=== PATIENT | male | born 1960 | race Hispanic/Latino ===

== ENCOUNTER 2017-07-26 11:31 | Inpatient (IN) | payer BC, OTHER ==
[~2017-07-26] VITALS: Ht 172.7 cm; Wt 126.6 kg
[2017-07-26 11:48] LABS: BASOPHILS % (AUTO) 0.7 % (0.0-5.0); EOSINOPHILS % (AUTO) 1.7 % (0.0-8.0); HEMATOCRIT 47.4 % (42-54); LYMPHOCYTES % (AUTO) 21.2 % (21.0-51.0); MEAN CORPUSCULAR HEMOGLOBIN 33.3 pg (27.0-33.0); MEAN CORPUSCULAR HGB CONC 34.6 g/dL (32.0-36.0); MEAN CORPUSCULAR VOLUME 96.4 fL (79-99); MONOCYTES % (AUTO) 8.9 % (3.0-13.0); NEUTROPHILS % (AUTO) 67.5 % (40.0-77.0); NUCLEATED RED BLOOD CELLS 0.1 % (0.0-0.19); PLATELET COUNT (AUTO) 200 K/uL (130-400); RED BLOOD CELL COUNT(AUTO) 4.92 MIL/uL (4.50-6.20); RED CELL DISTRIBUTION WIDTH 13.2 % (11.0-15.5); WHITE BLOOD COUNT (AUTO) 8.1 K/uL (4.8-10.8)
[2017-07-26 11:53] LABS: CREATININE 0.9 mg/dL (0.5-1.5); POTASSIUM 3.6 mmol/L (3.5-5.1)
[2017-07-26 11:59] LABS: ALBUMIN 3.7 g/dL (3.5-5.0); BILIRUBIN,TOTAL 0.7 mg/dL (0.2-1.0); TOTAL PROTEIN, SERUM 7.7 g/dL (6.0-8.3)
[2017-07-26] MEDS ORDERED: ASPIRIN 325 MG TABLET ONE (12:56)
[2017-07-26] MEDS ORDERED: NITROGLYCERIN 1GM/1 INCH PACKET TD ONE (12:56)
[2017-07-26 18:25] LABS: CREATINE KINASE, TOTAL 217 U/L (21-232); MYOGLOBIN 95 ng/mL (10-92); TROPONIN I < 0.04 ng/mL (0.00-0.06)
[2017-07-26 18:58] LABS: CREATINE KINASE MB 2.5 ng/mL (0.5-3.6)
[2017-07-26 19:30] VITALS: BP 127/80
[2017-07-26] MEDS ORDERED: SODIUM CHLORIDE 0.9% 10 ML VIAL IVP PRN (19:30)
[2017-07-26] MEDS ORDERED: REGADENOSON 0.4 MG/5 ML PF SYG IVP SCH (19:30)
[2017-07-26] MEDS: NITROGLYCERIN 1GM/1 INCH PACKET TD SCH (20:30)
[2017-07-26] MEDS: METOPROLOL TARTRATE 25 MG TAB PO SCH (20:30)
[2017-07-27] VITALS (8 sets, daily range): BP systolic 102–136; BP diastolic 51–79
[2017-07-27 00:58] LABS: CREATINE KINASE MB 1.6 ng/mL (0.5-3.6); CREATINE KINASE, TOTAL 190 U/L (21-232); MYOGLOBIN 59 ng/mL (10-92); TROPONIN I < 0.04 ng/mL (0.00-0.06)
[2017-07-27] MEDS: NITROGLYCERIN 1GM/1 INCH PACKET TD SCH ×4 (02:00→20:19)
[2017-07-27] MEDS: ASPIRIN 325 MG TABLET PO SCH (15:16)
[2017-07-27] MEDS: METOPROLOL TARTRATE 25 MG TAB PO SCH ×2 (15:30→20:19)
[2017-07-28] MEDS: NITROGLYCERIN 1GM/1 INCH PACKET TD SCH ×4 (02:00→20:22)
[2017-07-28 03:40] VITALS: BP 133/72
[2017-07-28 08:00] VITALS: BP 116/71
[2017-07-28] MEDS: METOPROLOL TARTRATE 25 MG TAB PO SCH ×2 (09:15→20:15)
[2017-07-28] MEDS: ASPIRIN 325 MG TABLET PO SCH (09:15)
[2017-07-28 10:52] LABS: APPEARANCE,URINE Clear (CLEAR); BILIRUBIN,URINE Negative (NEGATIVE); COLOR,URINE Dark Yellow (YELLOW); GLUCOSE, URINE (UA) TRACE mg/dL (NEGATIVE); KETONES,URINE Negative (NEGATIVE); LEUKOCYTE ESTERASE ,URINE Negative (NEGATIVE); NITRATE,URINE Negative (NEGATIVE); OCCULT BLOOD,URINE Negative (NEGATIVE); PH,URINE 5.5 (5.0-8.0); PROTEIN,URINE Negative (NEGATIVE)
[2017-07-28 11:00] VITALS: BP 131/69
[2017-07-28 11:00] LABS: BACTERIA,URINE Rare /HPF (None Seen); RBC,URINE 0-1 /HPF (0-1); SQUAMOUS EPITHELIAL CELL,UR Rare /LPF (0-2); WBC,URINE 0-1 /HPF (0-1)
[2017-07-28 16:00] VITALS: BP 124/62
[2017-07-28 19:40] VITALS: BP 126/66
[2017-07-28] MEDS: FAMOTIDINE 20MG TAB 20 MG TAB PO SCH (20:16)
[2017-07-28 23:25] VITALS: BP 124/68
[2017-07-29] VITALS (16 sets, daily range): BP systolic 109–178; BP diastolic 58–93
[2017-07-29] MEDS: NITROGLYCERIN 1GM/1 INCH PACKET TD SCH ×4 (02:00→20:00)
[2017-07-29 03:16] LABS: HEMATOCRIT 45.3 % (42-54); MEAN CORPUSCULAR HEMOGLOBIN 33.2 pg (27.0-33.0); MEAN CORPUSCULAR HGB CONC 34.5 g/dL (32.0-36.0); MEAN CORPUSCULAR VOLUME 96.2 fL (79-99); PLATELET COUNT (AUTO) 169 K/uL (130-400); RED BLOOD CELL COUNT(AUTO) 4.71 MIL/uL (4.50-6.20); RED CELL DISTRIBUTION WIDTH 13.5 % (11.0-15.5); WHITE BLOOD COUNT (AUTO) 7.1 K/uL (4.8-10.8)
[2017-07-29 03:25] LABS: INR 1.06 (0.85-1.15); PARTIAL THROMBOPLASTIN TIME 28.8 SEC (26.3-35.5); PROTHROMBIN TIME 11.1 SEC (9.6-11.6)
[2017-07-29 03:38] LABS: ALANINE AMINOTRANSFERASE 25 U/L (12-78); ALBUMIN 3.2 g/dL (3.5-5.0); ASPARTATE AMINOTRANSFERASE 24 U/L (10-37); BILIRUBIN,TOTAL 0.5 mg/dL (0.2-1.0); CARBON DIOXIDE 30 mmol/L (21-32); CHLORIDE 105 mmol/L (101-111); CREATINE KINASE MB 1.3 ng/mL (0.5-3.6); CREATINE KINASE, TOTAL 162 U/L (21-232); CREATININE 0.8 mg/dL (0.5-1.5); GLOMERULAR FILTR. RATE CALC 105 mL/min (>60); GLUCOSE,RANDOM 111 mg/dL (70-105); MYOGLOBIN 49 ng/mL (10-92); POTASSIUM 3.8 mmol/L (3.5-5.1); SODIUM SERUM 141 mmol/L (136-145); TOTAL PROTEIN, SERUM 6.9 g/dL (6.0-8.3); TROPONIN I < 0.04 ng/mL (0.00-0.06); UREA NITROGEN, BLOOD 12 mg/dL (7-18)
[2017-07-29] MEDS ORDERED: ISOVUE-370 50ML VIAL IV ONE (07:17)
[2017-07-29] MEDS ORDERED: IOPAMIDOL-370 100 ML VIAL IV ONE (07:17)
[2017-07-29] MEDS ORDERED: HEPARIN SODIUM 1000UNIT/ML 10ML VIAL ONE (07:17)
[2017-07-29] MEDS ORDERED: LIDOCAINE HCL 2% 20ML ONE ×2 (07:17→07:59)
[2017-07-29] MEDS ORDERED: MIDAZOLAM HCL 1 MG/ML 2ML VIAL ONE (07:53)
[2017-07-29] MEDS: ASPIRIN 325 MG TABLET PO SCH (11:45)
[2017-07-29] MEDS: METOPROLOL TARTRATE 25 MG TAB PO SCH ×2 (11:45→20:24)
[2017-07-29] MEDS: FAMOTIDINE 20MG TAB 20 MG TAB PO SCH ×2 (11:45→20:24)
[2017-07-30] MEDS: NITROGLYCERIN 1GM/1 INCH PACKET TD SCH ×4 (01:01→20:54)
[2017-07-30 03:23] LABS: APPEARANCE,URINE Clear (CLEAR); BILIRUBIN,URINE Negative (NEGATIVE); COLOR,URINE Yellow (YELLOW); GLUCOSE, URINE (UA) TRACE mg/dL (NEGATIVE); KETONES,URINE Negative (NEGATIVE); LEUKOCYTE ESTERASE ,URINE Negative (NEGATIVE); NITRATE,URINE Negative (NEGATIVE); OCCULT BLOOD,URINE Negative (NEGATIVE); PROTEIN,URINE Negative (NEGATIVE)
[2017-07-30 03:36] LABS: BACTERIA,URINE Rare /HPF (None Seen); RBC,URINE None Seen /HPF (0-1); WBC,URINE 0-1 /HPF (0-1)
[2017-07-30 04:00] VITALS: BP 112/69
[2017-07-30 04:19] LABS: POTASSIUM 3.9 mmol/L (3.5-5.1)
[2017-07-30 04:25] LABS: HEMOGLOBIN A1C 6.4 % (4.0-6.0)
[2017-07-30 08:00] VITALS: BP 107/71
[2017-07-30] MEDS: METOPROLOL TARTRATE 25 MG TAB PO SCH ×2 (08:23→20:54)
[2017-07-30] MEDS: FAMOTIDINE 20MG TAB 20 MG TAB PO SCH ×2 (08:23→20:55)
[2017-07-30] MEDS: ASPIRIN 325 MG TABLET PO SCH (08:23)
[2017-07-30 11:56] VITALS: BP 108/70
[2017-07-30 15:58] VITALS: BP 119/67
[2017-07-30 19:37] VITALS: BP 124/67
[2017-07-30 23:40] VITALS: BP 126/77
[2017-07-31] MEDS: NITROGLYCERIN 1GM/1 INCH PACKET TD SCH ×4 (02:10→22:05)
[2017-07-31 03:57] VITALS: BP 117/62
[2017-07-31 07:00] VITALS: BP 123/75
[2017-07-31] MEDS: ASPIRIN 325 MG TABLET PO SCH (08:30)
[2017-07-31] MEDS: METOPROLOL TARTRATE 25 MG TAB PO SCH ×2 (08:31→22:05)
[2017-07-31] MEDS: FAMOTIDINE 20MG TAB 20 MG TAB PO SCH ×2 (08:31→22:05)
[2017-07-31 11:28] VITALS: BP 108/60
[2017-07-31 16:00] VITALS: BP 112/62
[2017-07-31 18:00] LABS: BASOPHILS % (AUTO) 0.8 % (0.0-5.0); EOSINOPHILS % (AUTO) 2.4 % (0.0-8.0); HEMATOCRIT 44.4 % (42-54); LYMPHOCYTES % (AUTO) 22.2 % (21.0-51.0); MEAN CORPUSCULAR HEMOGLOBIN 33.5 pg (27.0-33.0); MEAN CORPUSCULAR HGB CONC 34.8 g/dL (32.0-36.0); MEAN CORPUSCULAR VOLUME 96.4 fL (79-99); MONOCYTES % (AUTO) 11.1 % (3.0-13.0); NEUTROPHILS % (AUTO) 63.5 % (40.0-77.0); PLATELET COUNT (AUTO) 196 K/uL (130-400); RED BLOOD CELL COUNT(AUTO) 4.61 MIL/uL (4.50-6.20); RED CELL DISTRIBUTION WIDTH 13.3 % (11.0-15.5); WHITE BLOOD COUNT (AUTO) 7.5 K/uL (4.8-10.8)
[2017-07-31 18:12] LABS: INR 1.02 (0.85-1.15); PARTIAL THROMBOPLASTIN TIME 26.6 SEC (26.3-35.5); PROTHROMBIN TIME 10.7 SEC (9.6-11.6)
[2017-07-31 19:00] VITALS: BP 134/67
[2017-07-31 23:31] VITALS: BP 116/69
[2017-08-01] VITALS (13 sets, daily range): BP systolic 89–130; BP diastolic 44–73
[2017-08-01] MEDS: NITROGLYCERIN 1GM/1 INCH PACKET TD SCH (02:19)
[2017-08-01 04:21] LABS: HEMATOCRIT 43.1 % (42-54); MEAN CORPUSCULAR HEMOGLOBIN 33.2 pg (27.0-33.0); MEAN CORPUSCULAR HGB CONC 34.4 g/dL (32.0-36.0); MEAN CORPUSCULAR VOLUME 96.5 fL (79-99); NUCLEATED RED BLOOD CELLS 0.1 % (0.0-0.19); PLATELET COUNT (AUTO) 189 K/uL (130-400); RED BLOOD CELL COUNT(AUTO) 4.47 MIL/uL (4.50-6.20); RED CELL DISTRIBUTION WIDTH 13.4 % (11.0-15.5); WHITE BLOOD COUNT (AUTO) 7.8 K/uL (4.8-10.8)
[2017-08-01 04:30] LABS: INR 1.02 (0.85-1.15); PARTIAL THROMBOPLASTIN TIME 27.1 SEC (26.3-35.5); PROTHROMBIN TIME 10.7 SEC (9.6-11.6)
[2017-08-01 04:40] LABS: BILIRUBIN,TOTAL 0.4 mg/dL (0.2-1.0); CREATININE 0.9 mg/dL (0.5-1.5); POTASSIUM 3.9 mmol/L (3.5-5.1); TOTAL PROTEIN, SERUM 6.9 g/dL (6.0-8.3)
[2017-08-01] MEDS ORDERED: CEFUROXIME SODIUM 1.5 GM VIAL ONE ×2 (05:31→11:52)
[2017-08-01] MEDS: METOPROLOL TARTRATE 25 MG TAB PO SCH (06:27)
[2017-08-01] MEDS ORDERED: BACITRACIN 50,000 UNIT VIAL ONE (06:46)
[2017-08-01] MEDS ORDERED: HEPARIN SODIUM 1000UNIT/ML 10ML VIAL ONE ×2 (06:46→07:42)
[2017-08-01] MEDS ORDERED: OCTYL 2-CYANOACRYLATE 1 EACH TP ONE (06:46)
[2017-08-01] MEDS ORDERED: PAPAVERINE HCL 30 MG/ML 2ML VIAL ONE (06:46)
[2017-08-01] MEDS ORDERED: NITROGLYCERIN 50 MG/D5% WATER 1 BOT ONE (06:51)
[2017-08-01] MEDS ORDERED: EPINEPHRINE 1 MG/ML 30ML VIAL IJ ONE (06:51)
[2017-08-01] MEDS ORDERED: SODIUM CHLORIDE 0.9% 1000ML 1,000 ML IV ONE ×2 (06:56→11:22)
[2017-08-01] MEDS: CEFUROXIME SODIUM 1.5 GM VIAL IVP SCH ×3 (07:00→18:14)
[2017-08-01] MEDS ORDERED: CEFUROXIME 1.5GM+NS 100ML 100 ML IV SCH ×2 (07:00→19:30)
[2017-08-01] MEDS ORDERED: MILRINONE-D5W 20 MG/100 ML 100 ML IV ONE (07:42)
[2017-08-01] MEDS ORDERED: NOREPINEPHRINE BITARTRATE 1 MG/1 ML ML IV ONE ×2 (07:42→08:07)
[2017-08-01] MEDS ORDERED: PROTAMINE SULFATE 10 MG/ML 25ML VIAL IV ONE (07:42)
[2017-08-01] MEDS ORDERED: MIDAZOLAM HCL 1 MG/ML 5ML VIAL ONE (07:42)
[2017-08-01] MEDS ORDERED: PROPOFOL 10 MG/ML 20ML VIAL IV ONE (07:42)
[2017-08-01] MEDS ORDERED: LIDOCAINE PF 2% 5ML ABBOJECT ONE (07:42)
[2017-08-01] MEDS ORDERED: AMIODARONE HCL 900MG/18ML IV ONE (07:42)
[2017-08-01] MEDS ORDERED: AMINOCAPROIC ACID 250 MG/ML 20 ML VIAL IV ONE (07:42)
[2017-08-01] MEDS ORDERED: GLYCOPYRROLATE 0.2 MG/ML 5 ML VIAL ONE (07:42)
[2017-08-01] MEDS ORDERED: ESMOLOL HCL 10 MG/ML 10 ML VIAL ONE (07:42)
[2017-08-01] MEDS ORDERED: NEOSTIGMINE 5MG/5ML SYR IV ONE (07:42)
[2017-08-01] MEDS ORDERED: ROCURONIUM BROMIDE 10MG/1ML 5ML VL ONE (07:42)
[2017-08-01] MEDS ORDERED: EPINEPHRINE 1 MG/ML AMPULE ONE (07:42)
[2017-08-01] MEDS ORDERED: KETAMINE 50MG/ML SYRINGE 50 MG/ML DISP.SYRIN IV ONE (07:44)
[2017-08-01] MEDS ORDERED: FENTANYL CITRATE PF 50 MCG/1 ML 5ML AMP IV ONE ×2 (07:45)
[2017-08-01] MEDS ORDERED: THROMBIN-JMI 5000 UNIT/VIAL TP ONE (07:59)
[2017-08-01] MEDS ORDERED: DELNIDO FORMULA 2 BAG IV ONE (07:59)
[2017-08-01 08:28] LABS: ABG BASE EXCESS -0.6 mmol/L (-2.0-3.0); ABG HCO3 23.2 mmol/L (21.0-28.0); ABG OXYGEN SATURATION 99.4 % (95.0-99.0); ABG PCO2 36 mmHg (35-48)
[2017-08-01] MEDS ORDERED: METHYLPREDNISOLONE SOD SUCC 1,000 MG/8 ML ML IV ONE (09:43)
[2017-08-01 10:44] LABS: ABG BASE EXCESS -6.6 mmol/L (-2.0-3.0); ABG HCO3 19.8 mmol/L (21.0-28.0); ABG OXYGEN SATURATION 98.7 % (95.0-99.0); ABG PCO2 43 mmHg (35-48)
[2017-08-01] MEDS ORDERED: SODIUM BICARB 50MEQ 50ML VIAL ONE ×9 (11:18→21:12)
[2017-08-01 11:22] LABS: ABG BASE EXCESS -4.1 mmol/L (-2.0-3.0); ABG HCO3 21.1 mmol/L (21.0-28.0); ABG OXYGEN SATURATION 99.1 % (95.0-99.0); ABG PCO2 39 mmHg (35-48)
[2017-08-01] MEDS ORDERED: SODIUM CHLORIDE 0.9% 500ML 500 ML IV SCH (11:29)
[2017-08-01] MEDS ORDERED: EPINEPHRINE 2 MG in SODIUM CHLORIDE 0.9% 250 ML IV PRN (11:30)
[2017-08-01] MEDS ORDERED: AMINOCAPROIC ACID 15,000 MG in SODIUM CHLORIDE 0.9% 250 ML IV SCH (11:30)
[2017-08-01] MEDS ORDERED: ONDANSETRON HCL MDV 20ML 2 MG/ML VIAL IV PRN (11:30)
[2017-08-01] MEDS ORDERED: HYDROCODONE/ACETAMINOPHEN 5/325 MG TAB PO PRN (11:30)
[2017-08-01] MEDS ORDERED: MORPHINE SULFATE 2 MG/ML 1ML SYG IV PRN (11:30)
[2017-08-01] MEDS ORDERED: GLUCAGON 1MG KIT 1 MG ML IM PRN (11:30)
[2017-08-01] MEDS ORDERED: SODIUM CHLORIDE 0.9% 1000ML 1,000 ML IV SCH (11:30)
[2017-08-01] MEDS ORDERED: NOREPINEPHRINE 4MG/NS 250ML 250 ML IV PRN (11:30)
[2017-08-01] MEDS ORDERED: POTASSIUM PHOS 15 mMOL+NS250ML 250 ML IV PRN (11:30)
[2017-08-01] MEDS ORDERED: PROPOFOL 1000 MG/100 ML 100 ML IV PRN (11:30)
[2017-08-01] MEDS ORDERED: ALBUMIN (HUMAN) 5% 250 ML IV PRN (11:30)
[2017-08-01] MEDS ORDERED: INSULIN REGULAR, HUMAN 3ML 100 UNIT in SODIUM CHLORIDE 0.9% 99 ML IV SCH ×2 (11:30)
[2017-08-01] MEDS ORDERED: SODIUM CHLORIDE 0.9% 10 ML VIAL IVP PRN (11:30)
[2017-08-01] MEDS ORDERED: ACETAMINOPHEN 325 MG TAB PO PRN (11:30)
[2017-08-01] MEDS ORDERED: DEXTROSE 50%-WATER 50 ML DISP.SYRIN IV PRN (11:30)
[2017-08-01] MEDS ORDERED: NITROGLYCERIN 50 MG/D5% WATER 250 BOT IV SCH (11:30)
[2017-08-01] MEDS ORDERED: SODIUM CHLORIDE 0.9% 250 ML IV PRN (11:30)
[2017-08-01] MEDS ORDERED: MAGNESIUM 2GM PREMIX 50ML 50 ML IV PRN (11:30)
[2017-08-01] MEDS ORDERED: ACETAMINOPHEN 650 MG SUPPOSITORY RC PRN (11:30)
[2017-08-01] MEDS ORDERED: NICARDIPINE HCL 100 MG in SODIUM CHLORIDE 0.9% 100 ML IV PRN (11:30)
[2017-08-01] MEDS ORDERED: SODIUM BICARB 8.4% 50ML SYRINGE IV PRN (11:30)
[2017-08-01] MEDS ORDERED: CALCIUM GLUCONATE 1 GM in SODIUM CHLORIDE 0.9% 50 ML IV PRN (11:30)
[2017-08-01] MEDS ORDERED: FENTANYL CITRATE PF 50 MCG/1 ML 2ML VIAL ONE ×3 (11:40)
[2017-08-01 11:55] LABS: ABG BASE EXCESS -3.2 mmol/L (-2.0-3.0); ABG HCO3 22.2 mmol/L (21.0-28.0); ABG OXYGEN SATURATION 98.6 % (95.0-99.0); ABG PCO2 42 mmHg (35-48)
[2017-08-01 12:51] LABS: ABG BASE EXCESS -6.5 mmol/L (-2.0-3.0); ABG HCO3 20.8 mmol/L (21.0-28.0); ABG OXYGEN SATURATION 96.3 % (95.0-99.0); ABG PCO2 48 mmHg (35-48)
[2017-08-01 12:56] LABS: MEAN CORPUSCULAR HEMOGLOBIN 33.5 pg (27.0-33.0); MEAN CORPUSCULAR HGB CONC 34.4 g/dL (32.0-36.0); MEAN CORPUSCULAR VOLUME 97.3 fL (79-99); NUCLEATED RED BLOOD CELLS 0.1 % (0.0-0.19); PLATELET COUNT (AUTO) 95 K/uL (130-400); RED BLOOD CELL COUNT(AUTO) 4.21 MIL/uL (4.50-6.20); RED CELL DISTRIBUTION WIDTH 13.2 % (11.0-15.5); WHITE BLOOD COUNT (AUTO) 27.2 K/uL (4.8-10.8)
[2017-08-01 13:11] LABS: CREATININE 1.3 mg/dL (0.5-1.5); MAGNESIUM 2.2 mg/dL (1.80-2.40); PHOSPHORUS 4.6 mg/dL (2.5-4.9); POTASSIUM 3.6 mmol/L (3.5-5.1)
[2017-08-01] MEDS: MORPHINE SULFATE 4 MG/1ML SYG IV PRN (13:35)
[2017-08-01] MEDS: POTASSIUM CHLORIDE 20MEQ/100ML 100 ML IV PRN ×6 (13:40→23:36)
[2017-08-01] MEDS ORDERED: CALCIUM CHLORIDE 100 MG/ML 10 ML SYG IVP SCH (15:45)
[2017-08-01 15:47] LABS: ABG BASE EXCESS -6.7 mmol/L (-2.0-3.0); ABG HCO3 19.7 mmol/L (21.0-28.0); ABG OXYGEN SATURATION 98.3 % (95.0-99.0); ABG PCO2 43 mmHg (35-48)
[2017-08-01 17:25] LABS: ABG BASE EXCESS 0.3 mmol/L (-2.0-3.0); ABG HCO3 24.3 mmol/L (21.0-28.0); ABG OXYGEN SATURATION 98.4 % (95.0-99.0); ABG PCO2 38 mmHg (35-48)
[2017-08-01] MEDS ORDERED: EPINEPHRINE 8 MG in SODIUM CHLORIDE 0.9% 250 ML IV SCH (17:30)
[2017-08-01] MEDS ORDERED: ALBUMIN (HUMAN) 5% 250 ML IV ONE (17:32)
[2017-08-01] MEDS ORDERED: ALBUMIN (HUMAN) 5% 250 ML IV SCH (17:45)
[2017-08-01 18:28] LABS: ABG BASE EXCESS -3.1 mmol/L (-2.0-3.0); ABG HCO3 21.4 mmol/L (21.0-28.0); ABG OXYGEN SATURATION 98.6 % (95.0-99.0); ABG PCO2 37 mmHg (35-48)
[2017-08-01] MEDS ORDERED: ALBUMIN (HUMAN) 25% 100 ML IV ONE (18:41)
[2017-08-01] MEDS: ALBUMIN (HUMAN) 25% 100 ML IV SCH (18:45)
[2017-08-01 20:02] LABS: ABG BASE EXCESS -3.5 mmol/L (-2.0-3.0); ABG PCO2 36 mmHg (35-48)
[2017-08-01] MEDS ORDERED: CALCIUM GLUCONATE 1 GM/10 ML VIAL IV ONE (20:05)
[2017-08-01 21:08] LABS: ABG BASE EXCESS -0.8 mmol/L (-2.0-3.0); ABG HCO3 24.1 mmol/L (21.0-28.0); ABG OXYGEN SATURATION 96.4 % (95.0-99.0); ABG PCO2 41 mmHg (35-48)
[2017-08-01 23:09] LABS: ABG BASE EXCESS 2.1 mmol/L (-2.0-3.0); ABG HCO3 27.7 mmol/L (21.0-28.0); ABG OXYGEN SATURATION 94.6 % (95.0-99.0); ABG PCO2 47 mmHg (35-48)
[2017-08-02] VITALS (26 sets, daily range): BP systolic 84–139; BP diastolic 45–87
[2017-08-02] MEDS: ALBUMIN (HUMAN) 25% 100 ML IV SCH ×5 (00:45→21:43)
[2017-08-02 01:04] LABS: ABG BASE EXCESS 4.5 mmol/L (-2.0-3.0); ABG HCO3 29.8 mmol/L (21.0-28.0); ABG OXYGEN SATURATION 95.9 % (95.0-99.0); ABG PCO2 48 mmHg (35-48)
[2017-08-02] MEDS: POTASSIUM CHLORIDE 20MEQ/100ML 100 ML IV PRN ×2 (01:32→05:27)
[2017-08-02 03:57] LABS: HEMATOCRIT 31.6 % (42-54); MEAN CORPUSCULAR HEMOGLOBIN 31.4 pg (27.0-33.0); MEAN CORPUSCULAR HGB CONC 34.9 g/dL (32.0-36.0); MEAN CORPUSCULAR VOLUME 90.1 fL (79-99); PLATELET COUNT (AUTO) 222 K/uL (130-400); RED BLOOD CELL COUNT(AUTO) 3.51 MIL/uL (4.50-6.20); RED CELL DISTRIBUTION WIDTH 14.4 % (11.0-15.5); WHITE BLOOD COUNT (AUTO) 17.9 K/uL (4.8-10.8)
[2017-08-02 04:10] LABS: CREATININE 1.1 mg/dL (0.5-1.5); MAGNESIUM 2.4 mg/dL (1.80-2.40); PHOSPHORUS 2.6 mg/dL (2.5-4.9); POTASSIUM 3.7 mmol/L (3.5-5.1)
[2017-08-02 05:11] LABS: ABG BASE EXCESS 5.6 mmol/L (-2.0-3.0); ABG HCO3 30.6 mmol/L (21.0-28.0); ABG OXYGEN SATURATION 93.9 % (95.0-99.0); ABG PCO2 45 mmHg (35-48)
[2017-08-02] MEDS ORDERED: CALCIUM GLUCONATE 1 GM/10 ML VIAL IV ONE (05:26)
[2017-08-02] MEDS: CEFUROXIME SODIUM 1.5 GM VIAL IVP SCH ×2 (06:25→19:18)
[2017-08-02] MEDS: HYDROCODONE/ACETAMINOPHEN 5/325 MG TAB PO PRN ×4 (08:31→19:43)
[2017-08-02] MEDS: PANTOPRAZOLE SODIUM 40 MG TABLET.DR PO SCH (08:32)
[2017-08-02] MEDS: ATORVASTATIN CALCIUM 40 MG TABLET PO SCH (08:32)
[2017-08-02] MEDS: METOPROLOL TARTRATE 25 MG TAB PO SCH ×2 (08:32→19:43)
[2017-08-02] MEDS: ASPIRIN 81MG TAB.CHEW PO SCH (08:32)
[2017-08-02] MEDS: MORPHINE SULFATE 4 MG/1ML SYG IV PRN (21:52)
[2017-08-03] VITALS (20 sets, daily range): BP systolic 95–130; BP diastolic 52–84
[2017-08-03 04:27] LABS: ALBUMIN 2.9 g/dL (3.5-5.0); BILIRUBIN,TOTAL 0.7 mg/dL (0.2-1.0); CREATININE 0.9 mg/dL (0.5-1.5); MAGNESIUM 1.9 mg/dL (1.80-2.40); PHOSPHORUS 3.5 mg/dL (2.5-4.9); POTASSIUM 4.2 mmol/L (3.5-5.1); TOTAL PROTEIN, SERUM 5.4 g/dL (6.0-8.3)
[2017-08-03 04:34] LABS: HEMATOCRIT 28.2 % (42-54); MEAN CORPUSCULAR HEMOGLOBIN 33.5 pg (27.0-33.0); MEAN CORPUSCULAR HGB CONC 34.3 g/dL (32.0-36.0); MEAN CORPUSCULAR VOLUME 97.8 fL (79-99); RED BLOOD CELL COUNT(AUTO) 2.88 MIL/uL (4.50-6.20); RED CELL DISTRIBUTION WIDTH 13.9 % (11.0-15.5); WHITE BLOOD COUNT (AUTO) 20.3 K/uL (4.8-10.8)
[2017-08-03 04:48] LABS: PLATELET COUNT (AUTO) 96 K/uL (130-400)
[2017-08-03 04:55] LABS: BAND NEUTROPHILS % (MANUAL) 14 % (0-2); LYMPHOCYTES % (MANUAL) 5 % (22-44); MAN.DIFF COMMENT-IMPRESSION MANUAL DIFFERENTIAL; MONOCYTES % (MANUAL) 7 % (2-9); SEGMENTED NEUTROPHILS % 74 % (40-70)
[2017-08-03] MEDS: PANTOPRAZOLE SODIUM 40 MG TABLET.DR PO SCH (09:06)
[2017-08-03] MEDS: ASPIRIN 81MG TAB.CHEW PO SCH (09:06)
[2017-08-03] MEDS: ATORVASTATIN CALCIUM 40 MG TABLET PO SCH (09:06)
[2017-08-03] MEDS: METOPROLOL TARTRATE 25 MG TAB PO SCH ×2 (09:07→22:36)
[2017-08-03] MEDS: ALBUMIN (HUMAN) 25% 100 ML IV SCH ×2 (12:45→16:54)
[2017-08-03] MEDS: HYDROCODONE/ACETAMINOPHEN 5/325 MG TAB PO PRN (13:45)
[2017-08-03] MEDS: INSULIN HUMULIN R 100 UNIT/ML 3ML SQ SCH (21:00)
[2017-08-04] VITALS (7 sets, daily range): BP systolic 106–132; BP diastolic 55–78
[2017-08-04] MEDS: ALBUMIN (HUMAN) 25% 100 ML IV SCH ×5 (00:45→23:54)
[2017-08-04 03:15] LABS: CREATININE 0.8 mg/dL (0.5-1.5); MAGNESIUM 2.3 mg/dL (1.80-2.40); PHOSPHORUS 3.7 mg/dL (2.5-4.9); POTASSIUM 4.9 mmol/L (3.5-5.1)
[2017-08-04 05:03] LABS: HEMATOCRIT 28.9 % (42-54); MEAN CORPUSCULAR HEMOGLOBIN 33.4 pg (27.0-33.0); MEAN CORPUSCULAR HGB CONC 34.6 g/dL (32.0-36.0); MEAN CORPUSCULAR VOLUME 96.5 fL (79-99); RED CELL DISTRIBUTION WIDTH 13.4 % (11.0-15.5); WHITE BLOOD COUNT (AUTO) 18.4 K/uL (4.8-10.8)
[2017-08-04 05:46] LABS: PLATELET COUNT (AUTO) 30 K/uL (130-400)
[2017-08-04 06:05] LABS: LYMPHOCYTES % (MANUAL) 4 % (22-44); MAN.DIFF COMMENT-IMPRESSION MANUAL DIFFERENTIAL; MONOCYTES % (MANUAL) 3 % (2-9); SEGMENTED NEUTROPHILS % 93 % (40-70)
[2017-08-04 06:08] LABS: PLATELET MORPHOLOGY COMMENT MARKED DECREASED
[2017-08-04] MEDS: INSULIN HUMULIN R 100 UNIT/ML 3ML SQ SCH ×4 (06:12→20:09)
[2017-08-04] MEDS: PANTOPRAZOLE SODIUM 40 MG TABLET.DR PO SCH (08:26)
[2017-08-04] MEDS: ATORVASTATIN CALCIUM 40 MG TABLET PO SCH (08:26)
[2017-08-04] MEDS: METOPROLOL TARTRATE 25 MG TAB PO SCH ×2 (08:27→21:32)
[2017-08-04] MEDS: ASPIRIN 81MG TAB.CHEW PO SCH (12:20)
[2017-08-04] MEDS: FUROSEMIDE 20 MG TABLET PO SCH (16:43)
[2017-08-04] MEDS ORDERED: LACTULOSE 20 GM/30 ML UDCUP PO PRN (17:30)
[2017-08-05 03:26] VITALS: BP 134/80
[2017-08-05 04:28] LABS: BASOPHILS % (AUTO) 0.2 % (0.0-5.0); EOSINOPHILS % (AUTO) 0.1 % (0.0-8.0); HEMATOCRIT 28.3 % (42-54); LYMPHOCYTES % (AUTO) 8.9 % (21.0-51.0); MEAN CORPUSCULAR HEMOGLOBIN 34.1 pg (27.0-33.0); MEAN CORPUSCULAR HGB CONC 35.6 g/dL (32.0-36.0); MEAN CORPUSCULAR VOLUME 95.8 fL (79-99); NEUTROPHILS % (AUTO) 82.8 % (40.0-77.0); NUCLEATED RED BLOOD CELLS 0.1 % (0.0-0.19); PLATELET COUNT (AUTO) 41 K/uL (130-400); RED BLOOD CELL COUNT(AUTO) 2.95 MIL/uL (4.50-6.20); RED CELL DISTRIBUTION WIDTH 13.2 % (11.0-15.5); WHITE BLOOD COUNT (AUTO) 14.7 K/uL (4.8-10.8)
[2017-08-05 04:44] LABS: ALBUMIN 2.7 g/dL (3.5-5.0); CREATININE 0.8 mg/dL (0.5-1.5); POTASSIUM 4.1 mmol/L (3.5-5.1); TOTAL PROTEIN, SERUM 5.8 g/dL (6.0-8.3)
[2017-08-05] MEDS: INSULIN HUMULIN R 100 UNIT/ML 3ML SQ SCH ×4 (05:55→20:22)
[2017-08-05] MEDS: ALBUMIN (HUMAN) 25% 100 ML IV SCH (05:56)
[2017-08-05 07:00] VITALS: BP 124/70
[2017-08-05] MEDS: METOPROLOL TARTRATE 25 MG TAB PO SCH ×2 (09:13→20:17)
[2017-08-05] MEDS: PANTOPRAZOLE SODIUM 40 MG TABLET.DR PO SCH (09:13)
[2017-08-05] MEDS: ATORVASTATIN CALCIUM 40 MG TABLET PO SCH (09:13)
[2017-08-05] MEDS: FUROSEMIDE 20 MG TABLET PO SCH ×2 (09:13→17:54)
[2017-08-05 11:00] VITALS: BP 104/57
[2017-08-05 16:00] VITALS: BP 141/91
[2017-08-05 20:03] VITALS: BP 115/69
[2017-08-05 23:33] VITALS: BP 110/66
[2017-08-06 03:33] VITALS: BP 107/54
[2017-08-06 03:59] LABS: HEMATOCRIT 31.5 % (42-54); MEAN CORPUSCULAR HEMOGLOBIN 34.1 pg (27.0-33.0); MEAN CORPUSCULAR HGB CONC 35.4 g/dL (32.0-36.0); MEAN CORPUSCULAR VOLUME 96.5 fL (79-99); NUCLEATED RED BLOOD CELLS 0.4 % (0.0-0.19); PLATELET COUNT (AUTO) 45 K/uL (130-400); RED BLOOD CELL COUNT(AUTO) 3.27 MIL/uL (4.50-6.20); RED CELL DISTRIBUTION WIDTH 13.2 % (11.0-15.5); WHITE BLOOD COUNT (AUTO) 12.9 K/uL (4.8-10.8)
[2017-08-06] MEDS: INSULIN HUMULIN R 100 UNIT/ML 3ML SQ SCH ×4 (06:26→21:00)
[2017-08-06 08:01] VITALS: BP 100/54
[2017-08-06] MEDS: METOPROLOL TARTRATE 25 MG TAB PO SCH ×2 (08:52→19:37)
[2017-08-06] MEDS: FUROSEMIDE 20 MG TABLET PO SCH ×2 (08:52→16:01)
[2017-08-06] MEDS: ATORVASTATIN CALCIUM 40 MG TABLET PO SCH (08:52)
[2017-08-06] MEDS: PANTOPRAZOLE SODIUM 40 MG TABLET.DR PO SCH (08:52)
[2017-08-06 11:40] VITALS: BP 104/65
[2017-08-06 16:04] VITALS: BP 113/66
[2017-08-06 20:14] VITALS: BP 105/61
[2017-08-07] VITALS (7 sets, daily range): BP systolic 109–179; BP diastolic 43–74
[2017-08-07] MEDS: INSULIN HUMULIN R 100 UNIT/ML 3ML SQ SCH ×4 (06:12→21:00)
[2017-08-07] MEDS ORDERED: ASPIRIN 81MG TAB.CHEW PO SCH (09:00)
[2017-08-07] MEDS: METOPROLOL TARTRATE 25 MG TAB PO SCH ×2 (09:01→22:02)
[2017-08-07] MEDS: ATORVASTATIN CALCIUM 40 MG TABLET PO SCH (09:01)
[2017-08-07] MEDS: FUROSEMIDE 20 MG TABLET PO SCH ×2 (09:01→17:22)
[2017-08-07] MEDS: PANTOPRAZOLE SODIUM 40 MG TABLET.DR PO SCH (09:01)
[2017-08-07] MEDS: ASPIRIN 81MG TAB.CHEW PO SCH (13:29)
[2017-08-08 03:31] VITALS: BP 106/49
[2017-08-08] MEDS: INSULIN HUMULIN R 100 UNIT/ML 3ML SQ SCH ×2 (06:21→11:30)
[2017-08-08 07:00] VITALS: BP 160/86
[2017-08-08 07:46] LABS: HEMATOCRIT 30.4 % (42-54); MEAN CORPUSCULAR HGB CONC 34.6 g/dL (32.0-36.0); MEAN CORPUSCULAR VOLUME 95.6 fL (79-99); NUCLEATED RED BLOOD CELLS 0.1 % (0.0-0.19); PLATELET COUNT (AUTO) 72 K/uL (130-400); RED BLOOD CELL COUNT(AUTO) 3.18 MIL/uL (4.50-6.20); RED CELL DISTRIBUTION WIDTH 13.3 % (11.0-15.5); WHITE BLOOD COUNT (AUTO) 12.8 K/uL (4.8-10.8)
[2017-08-08 08:08] LABS: EOSINOPHILS % (MANUAL) 2 % (1-6); LYMPHOCYTES % (MANUAL) 13 % (22-44); MAN.DIFF COMMENT-IMPRESSION MANUAL DIFFERENTIAL; MONOCYTES % (MANUAL) 6 % (2-9); SEGMENTED NEUTROPHILS % 79 % (40-70)
[2017-08-08 08:09] LABS: PLATELET MORPHOLOGY COMMENT DECREASED
[2017-08-08] MEDS: PANTOPRAZOLE SODIUM 40 MG TABLET.DR PO SCH (08:13)
[2017-08-08] MEDS: ASPIRIN 81MG TAB.CHEW PO SCH (08:13)
[2017-08-08] MEDS: ATORVASTATIN CALCIUM 40 MG TABLET PO SCH (08:13)
[2017-08-08] MEDS: METOPROLOL TARTRATE 25 MG TAB PO SCH (08:14)
[2017-08-08] MEDS: FUROSEMIDE 20 MG TABLET PO SCH (08:14)
[2017-08-08] MEDS ORDERED: ASPIRIN 81MG TAB.CHEW PO SCH (09:00)
[2017-08-08 11:00] VITALS: BP 109/70
== END 2017-08-08 16:22 | DRG 216 ==
LOC: EDH 11:31 → UNDOADMOB 11:32 → EDHIP 11:32 → OBSVTOIN 13:00 → EDHIP 13:00 → 3BH 18:34 → 2AH 07-31 20:35 → 2CV 08-01 06:52 → 2BH 08-02 04:38 → 2AH 08-03 18:14
PROVIDERS: ADMIT Internal Medicine; ATTEND Internal Medicine
PROC: 4A023N7 Measurement of Cardiac Sampling and Pressure, Left Heart, Percutaneous Approach (ICD-10-PCS; principal; 2017-07-29)
PROC: B2111ZZ Fluoroscopy of Multiple Coronary Arteries using Low Osmolar Contrast (ICD-10-PCS; 2017-07-29)
PROC: 5A1221Z Performance of Cardiac Output, Continuous (ICD-10-PCS; 2017-08-01)
PROC: 06BQ4ZZ Excision of Left Saphenous Vein, Percutaneous Endoscopic Approach (ICD-10-PCS; 2017-08-01)
PROC: 03B10ZZ Excision of Left Internal Mammary Artery, Open Approach (ICD-10-PCS; 2017-08-01)
PROC: 02QF0ZZ Repair Aortic Valve, Open Approach (ICD-10-PCS; 2017-08-01)
PROC: 02B Heart and Great Vessels, Excision (ICD-10-PCS; 2017-08-01 07:54)
PROC: 02RF08Z Replacement of Aortic Valve with Zooplastic Tissue, Open Approach (ICD-10-PCS; 2017-08-01 07:54)
PROC: 02100Z9 Bypass Coronary Artery, One Artery from Left Internal Mammary, Open Approach (ICD-10-PCS; 2017-08-01 07:54)
DX: I35.0 Nonrheumatic aortic (valve) stenosis (principal); I21.4 Non-ST elevation (NSTEMI) myocardial infarction; N17.9 Acute kidney failure, unspecified; D69.6 Thrombocytopenia, unspecified; E66.01 Morbid (severe) obesity due to excess calories; E87.70 Fluid overload, unspecified; I25.110 Atherosclerotic heart disease of native coronary artery with unstable angina pectoris; Z68.41 Body mass index [BMI] 40.0-44.9, adult; J93.9 Pneumothorax, unspecified; J44.9 Chronic obstructive pulmonary disease, unspecified; D64.9 Anemia, unspecified; E78.5 Hyperlipidemia, unspecified; I71.2 Thoracic aortic aneurysm, without rupture; G47.33 Obstructive sleep apnea (adult) (pediatric); Z82.3 Family history of stroke; Z87.891 Personal history of nicotine dependence; Z91.19 Patient's noncompliance with other medical treatment and regimen; Z79.82 Long term (current) use of aspirin; Z79.899 Other long term (current) drug therapy; Z28.21 Immunization not carried out because of patient refusal
CPT/HCPCS: 36415; 36600; 71045; 71046; 71250; 76700; 76998; 78452; 80048; 80053; 81001; 82330; 82435; 82550; 82553; 82803; 82947; 82948; 83036; 83605; 83735; 83874; 84100; 84132; 84295; 84484; 85018; 85025; 85027; 85049; 85347; 85610; 85730; 86022; 86850; 86900; 86901; 86922; 87324; 88305; 88311; 93005; 93017; 93306; 93318; 93454; 93880; 93925; 94002; 94010; 96374; 97039; 99152; 99153; 99291; A4218; A7048; A9500; C1729; C1769; C1894; J0171; J0282; J0610; J0697; J1644; J1815; J2001; J2250; J2260; J2270; J2440; J2704; J2710; J2720; J2785; J2930; J3010; J3475; J3480; J3490; J7030; J7040; J7120; P9045; P9046; Q9967

== ENCOUNTER → 2017-10-29 | Outpatient (CLI) | payer BC | END | disposition home or self-care (01) | LOC: SHCH 14:58 | PROVIDERS: ATTEND Internal Medicine Cardiovascular Disease | DX: I25.10 Atherosclerotic heart disease of native coronary artery without angina pectoris (principal); I35.0 Nonrheumatic aortic (valve) stenosis; E78.4 Other hyperlipidemia; Z95.1 Presence of aortocoronary bypass graft | CPT/HCPCS: 93306 ==